=== PATIENT | male | born 1985 | race Caucasian/White ===

== ENCOUNTER 2024-09-16 11:33 | Emergency (ER) | payer OTHER ==
[2024-09-16 11:37] VITALS: TEMP 97.2; O2SAT 99
[2024-09-16] MEDS ORDERED: BABY ASPIRIN 81 MG CHEW ONE ×2 (11:45→11:48)
[2024-09-16] MEDS ORDERED: Sodium Chloride 0.9% 1000 ML 1,000 ML ONE (11:46)
[2024-09-16] MEDS ORDERED: Nitrostat 0.4 MG (ED) SL ONE (11:46)
[2024-09-16] MEDS: Sodium Chloride 0.9% 1000 ML 1,000 ML IV SCH (11:47)
[2024-09-16] MEDS: BABY ASPIRIN 81 MG CHEW PO ONE ×2 (11:49→11:50)
[2024-09-16] MEDS: Nitrostat 0.4 MG (ED) SL ONE (11:49)
[2024-09-16 11:58] LABS: Absolute Neutrophil Ct (ANC) 5.18 x10^3/uL (1.78-5.38); BASOPHIL % 0.7 % (0.2-1.2); Basophil (Absolute #) 0.05 x10^3/uL (0.01-0.08); Eosinophil % 3.1 % (0.8-7.0); Eosinophil (Absolute #) 0.24 x10^3/uL (0.04-0.54); Hematocrit 45.7 % (40.1-51.0); Hemoglobin 15.7 g/dL (13.7-17.5); IMMATURE GRAN # 0.03 x10^3u/L (0.001-0.031); IMMATURE GRAN % 0.4 % (0.001-0.429); Lymphocyte (Absolute #) 1.57 x10^3/uL (1.32-3.57); Lymphocytes % 20.5 % (21.8-53.1); Mean Cell Volume 85.4 fL (79.0-92.2); Mean Corpuscular Hemoglobin 29.3 pg (25.7-32.2); Mean Corpuscular Hgb Concent. 34.4 g/dL (32.3-36.5); Mean Platelet Volume 9.6 fL (9.4-12.4); Monocyte (Absolute #) 0.57 x10^3/uL (0.30-0.82); Monocytes % 7.5 % (5.3-12.2); Neutrophil % 67.8 % (34.0-67.9); Platelet Count 336 x10^3/uL (163-337); Red Blood Count 5.35 x10^6/uL (4.63-6.08); Red Cell Distribution Width 13.9 % (11.6-14.4); White Blood Count 7.6 x10^3/uL (4.23-9.07)
--- NOTE | 2024-09-16 12:16 | ERPHSYRPT ---
- History of Present Illness Time Seen by Provider: 09/16/24 12:13 Historian: patient Exam Limitations: no limitations Patient Subjective Stated Complaint: pt her for pain to left side of chest. started today at rest. states pain worse with deep breath, denies any cough or fever Triage Nursing Assessment: pt alert, walked in, resp easy, skin w/d/p, chest clear, no cough, moves all ext well, Physician History: Patient is 39-year-old male with significant past medical history of hypertension and gout has off-and-on chest pain for last couple weeks for which patient was seen in the primary care physician office to 3 days ago where he had some tingling and numbness in his left arm. Patient was informed there might be some anxiety related symptoms but advised to come to the emergency room if symptoms persist or or develop chest pain. Patient started having a substernal and left-sided chest pain in the morning around 930 10:00 in chest pain persisted so he came to the emergency room. In the emergency room he was having very mild chest pain but denies any other symptoms including diaphoresis nausea vomiting headache or shortness of breath. Patient is taking medicine for his blood pressure and cholesterol as well as for his gout he does not remember the names. Timing/Duration: today Quality: burning Location: substernal Chest Pain Radiation: no radiation Severity of Pain-Max: mild Severity of Pain-Current: mild Modifying Factors: Improves With: nothing Associated Symptoms: denies symptoms Nitro Today/Relief: no nitro taken today Aspirin Treatment Today: no aspirin today Allergies/Adverse Reactions: No Known Drug Allergies Allergy (Unverified 09/16/24 11:35) Home Medications: Unobtainable 09/16/24 [History] Hx Tetanus, Diphtheria Vaccination/Date Given: No Hx Influenza Vaccination/Date Given: No Hx Pneumococcal Vaccination/Date Given: No Immunizations Up to Date: Yes Travel Risk - International Travel Have you traveled outside of the country in past 3 weeks: No - Emerging Infectious Disease Are you exhibiting symptoms associated with any current EIDs: No - Review of Systems Constitutional: No Fever, No Chills Eyes: No Symptoms Ears, Nose, & Throat: No Symptoms Respiratory: No Cough, No Dyspnea Cardiac: No Chest Pain, No Edema, No Syncope Abdominal/Gastrointestinal: No Abdominal Pain, No Nausea, No Vomiting, No Diarrhea Genitourinary Symptoms: No Dysuria Musculoskeletal: No Back Pain, No Neck Pain Skin: No Rash Neurological: No Dizziness, No Focal Weakness, No Sensory Changes Psychological: No Symptoms Endocrine: No Symptoms All Other Systems: Reviewed and Negative - Past Medical History Pertinent Past Medical History: Yes Cardiac History: High Cholesterol, Hypertension Other Medical History: gout - Past Surgical History Past Surgical History: Yes Musculoskeletal: Orthopedic Surgery Other Surgical History: knee - Social History Smoking Status: Never smoker Exposure to second hand smoke: No Drug Use: none - Social Determinants of Health Will the patient participate in the screening: Declined to provide - Nursing Vital Signs Nursing Vital Signs: Initial Vital Signs Blood Pressure 151/98 09/16/24 11:35 Pain Scale Pain Intensity 3 - Physical Exam General Appearance: no apparent distress, alert Eye Exam: PERRL/EOMI, eyes nml inspection Ears, Nose, Throat Exam: normal ENT inspection, moist mucous membranes Neck Exam: normal inspection, non-tender, supple, full range of motion Respiratory Exam: normal breath sounds, lungs clear, No respiratory distress Cardiovascular Exam: regular rate/rhythm, normal heart sounds Gastrointestinal/Abdomen Exam: soft, No tenderness, No mass Back Exam: normal inspection, No CVA tenderness, No vertebral tenderness Extremity Exam: normal inspection, normal range of motion Neurologic Exam: alert, oriented x 3, cooperative, normal mood/affect, sensation nml, No motor deficits Skin Exam: normal color, warm, dry SpO2: 99 - Course Nursing assessment & vital signs reviewed: Yes EKG Interpreted by Me: Sinus Rhythm, Non-specific ST Changes - Radiology Exams Chest X-ray Interpretation: Interpreted by me, Reviewed by me, Negative, No Pneumonia Ordered Tests: Active Orders 24 hr Category Date Time Status Smooth Plater STAT Care 09/16/24 11:41 Active EKG-ER Only STAT Care 09/16/24 11:41 Active IV Insertion STAT Care 09/16/24 11:41 Active Oxygen-ED Only Nasal Cannula 2 lpm Care 09/16/24 11:41 Active CHEST 1 VIEW (PORTABLE) Stat Exams 09/16/24 11:41 Ordered CBC W DIFF Stat Lab 09/16/24 11:58 Completed CMP Stat Lab 09/16/24 11:58 Completed D-DIMER QUANTITATIVE Stat Lab 09/16/24 11:58 Completed NT PRO BNPII Stat Lab 09/16/24 11:58 Completed TROPONIN Q4H Lab 09/16/24 11:58 Completed TROPONIN Q4H Lab 09/16/24 15:45 Ordered TROPONIN Q4H Lab 09/16/24 19:45 Ordered Uric Acid Stat Lab 09/16/24 11:58 Completed Medication Summary Generic Name Dose Route Start Last Admin Trade Name Myranda PRN Reason Stop Dose Admin Sodium Chloride 1,000 mls @ 100 mls/hr 09/16/24 11:45 09/16/24 11:47 Sodium Chloride 0.9% 1000 Ml IV 10/16/24 11:44 100 mls/hr .Q10H HENRIETTA Administration Discontinued Medications Generic Name Dose Route Start Last Admin Trade Name Myranda PRN Reason Stop Dose Admin Aspirin 81 mg 09/16/24 11:41 09/16/24 11:49 Aspirin 81 Mg Tab.Chew PO 09/16/24 11:42 Not Given STAT ONE Aspirin Confirm 09/16/24 11:45 Aspirin 81 Mg Tab.Chew Administered 09/16/24 11:46 Dose 81 mg .ROUTE .STK-MED ONE Aspirin 324 mg 09/16/24 11:48 09/16/24 11:50 Aspirin 81 Mg Tab.Chew PO 09/16/24 11:49 324 mg STAT ONE Administration Aspirin Confirm 09/16/24 11:48 Aspirin 81 Mg Tab.Chew Administered 09/16/24 11:49 Dose 243 mg .ROUTE .STK-MED ONE Nitroglycerin 0.4 mg 09/16/24 11:41 09/16/24 11:49 Nitroglycerin 0.4 Mg (Ed) 0.4 Mg Tab.Subl SL 09/16/24 11:42 0.4 mg STAT ONE Administration Nitroglycerin Confirm 09/16/24 11:46 Nitroglycerin 0.4 Mg (Ed) 0.4 Mg Tab.Subl Administered 09/16/24 11:47 Dose 0.4 mg SL .STK-MED ONE Lab/Rad Data: Laboratory Result Diagrams 09/16/24 11:58 09/16/24 11:58 Laboratory Results 09/16/24 09/16/24 09/16/24 Range/Units 11:58 11:58 11:58 WBC (4.23-9.07) x10^3/uL RBC (4.63-6.08) x10^6/uL Hgb (13.7-17.5) g/dL Hct (40.1-51.0) % MCV (79.0-92.2) fL MCH (25.7-32.2) pg MCHC (32.3-36.5) g/dL RDW (11.6-14.4) % Plt Count (163-337) x10^3/uL MPV (9.4-12.4) fL Gran % (34.0-67.9) % Immature Gran % (Auto) (0.001-0.429) % Nucleat RBC Rel Count (0.00-0.2) % Eos # (Auto) (0.04-0.54) x10^3/uL Immature Gran # (Auto) (0.001-0.031) x10^3u/L Absolute Lymphs (auto) (1.32-3.57) x10^3/uL Absolute Monos (auto) (0.30-0.82) x10^3/uL Absolute Nucleated RBC (0.00-0.012) x10^3u/L Lymphocytes % (21.8-53.1) % Monocytes % (5.3-12.2) % Eosinophils % (0.8-7.0) % Basophils % (0.2-1.2) % Absolute Granulocytes (1.78-5.38) x10^3/uL Basophils # (0.01-0.08) x10^3/uL D-Dimer < 0.19 (0.0-0.50) mg/L Sodium 141 (135-145) mmol/L Potassium 3.6 (3.5-5.1) mmol/L Chloride 103 (98-107) mmol/L Carbon Dioxide 26 (22-30) mmol/L Anion Gap 15.1 H (5-15) MEQ/L BUN 12 (9-20) mg/dL Creatinine 0.94 (0.66-1.25) mg/dL Estimated GFR 107.1 ML/MIN Glucose 98 (74-106) mg/dL Uric Acid 5.2 (3.5-7.2) mg/dL Calcium 9.5 (8.4-10.2) mg/dL Total Bilirubin 0.70 (0.2-1.3) mg/dL AST 27 (17-59) U/L ALT 29 (0-50) U/L Alkaline Phosphatase 71 (38-126) U/L Troponin I < 0.012 (0.000-0.033) ng/mL NT-Pro-B Natriuret Pep < 20.0 (<300) pg/mL Serum Total Protein 7.0 (6.3-8.2) g/dL Albumin 4.6 (3.5-5.0) g/dL // Range/Units 11:58 WBC 7.6 (4.23-9.07) x10^3/uL RBC 5.35 (4.63-6.08) x10^6/uL Hgb 15.7 (13.7-17.5) g/dL Hct 45.7 (40.1-51.0) % MCV 85.4 (79.0-92.2) fL MCH 29.3 (25.7-32.2) pg MCHC 34.4 (32.3-36.5) g/dL RDW 13.9 (11.6-14.4) % Plt Count 336 (163-337) x10^3/uL MPV 9.6 (9.4-12.4) fL Gran % 67.8 (34.0-67.9) % Immature Gran % (Auto) 0.4 (0.001-0.429) % Nucleat RBC Rel Count 0.0 (0.00-0.2) % Eos # (Auto) 0.24 (0.04-0.54) x10^3/uL Immature Gran # (Auto) 0.03 (0.001-0.031) x10^3u/L Absolute Lymphs (auto) 1.57 (1.32-3.57) x10^3/uL Absolute Monos (auto) 0.57 (0.30-0.82) x10^3/uL Absolute Nucleated RBC 0.00 (0.00-0.012) x10^3u/L Lymphocytes % 20.5 L (21.8-53.1) % Monocytes % 7.5 (5.3-12.2) % Eosinophils % 3.1 (0.8-7.0) % Basophils % 0.7 (0.2-1.2) % Absolute Granulocytes 5.18 (1.78-5.38) x10^3/uL Basophils # 0.05 (0.01-0.08) x10^3/uL D-Dimer (0.0-0.50) mg/L Sodium (135-145) mmol/L Potassium (3.5-5.1) mmol/L Chloride (98-107) mmol/L Carbon Dioxide (22-30) mmol/L Anion Gap (5-15) MEQ/L BUN (9-20) mg/dL Creatinine (0.66-1.25) mg/dL Estimated GFR ML/MIN Glucose (74-106) mg/dL Uric Acid (3.5-7.2) mg/dL Calcium (8.4-10.2) mg/dL Total Bilirubin (0.2-1.3) mg/dL AST (17-59) U/L ALT (0-50) U/L Alkaline Phosphatase (38-126) U/L Troponin I (0.000-0.033) ng/mL NT-Pro-B Natriuret Pep (<300) pg/mL Serum Total Protein (6.3-8.2) g/dL Albumin (3.5-5.0) g/dL Medical Desision Making - Diagnostic Testing Diagnostic test were ordered, analyzed, and reviewed by me: Yes Radiological Interpretation: Interpreted by me, Reviewed by me - Risk of complications Low Risk: Low risk of morbidity from additional dx testing or treatment - Departure Departure Disposition: Home Clinical Impression: Chest pain in adult Condition: Stable Critical Care Time: No Referrals: MARIA WING MD [ACTIVE STAFF, [facility]] - Follow up/PCP as directed Instructions: Chest Pain (DC) Additional Instructions: Discharge/Care Plan EAMONWESLY was seen on 09/16/24 in the Emergency Room. The patient was counseled regarding Diagnosis,Lab results, Imaging studies, need for follow up and when to return to the Emergency Room. Prescriptions given: Discharge Note I have spoken with the patient and/or caregivers. I have explained the patient's condition, diagnosis and treatment plan based on the information available to me at this time. I have answered the patient's and/or caregiver's questions and addressed any concerns. The patient and/or caregivers have as good understanding of the patient's diagnosis, condition and treatment plan as can be expected at this point. The vital signs have been stable. The patient's condition is stable and appropriate for discharge from the emergency department. The patient will pursue further outpatient evaluation with the primary care physician or other designated or consulting physician as outlined in the discharge instructions. The patient and/or caregivers are agreeable to this plan of care and follow-up instructions have been explained in detail. The patient and/or caregivers have received these instruction. The patient/and or caregivers are aware that any significant change in condition or worsening of symptoms should prompt an immediate return to this or the closest emergency department or call 911. WESLY KNUTSON was seen on 09/16/24 n the Emergency Room. At that time you were treated for an emergent condition, during your visit Laboratory, Radiology and/or other procedures may have been ordered. It is very important that you follow-up with your Primary Care Physician ILIA ROBERTS within the next 2 4-48 hours to review your Emergency Room visit and the final results of testing that was ordered. Some test results such as Urine Cultures, Blood Cultures, and other cultures if ordered will not be finalized for 24-48 hours. If you do not have a Primary Care Provider please call the medical records department at [phone] ext [phone] to obtain a copy of your results or you may sign into our patient portal to obtain these results by visiting us @ [email or web address] and completing the following steps: 1. Click on the Patient Portal link 2. Click the Patient Self Enrollment Link to complete the enrollment form and entering your 3. Once the enrollment form is completed you will receive an email with a temporary ID and password at the email address you provided. 4. Next choose a user name and password. Your user name must be at least 4 characters long and your password must be at least 4 characters long. 5. Choose a security question from the list and provide your answer to the question. If you already have signed into the Health Portal you may access your Health Care Information 13/12 by the following steps: 1. Login to our website @ [email or web address] 2. Enter your original user name and password. FAQS The [facility] Health Portal is an online tool that contains your Lab Results, Radiology Reports, Visit History, Discharge Instructions and Health Summary Lab and Radiology Results will not be available for 72 hours on the portal. The Portal is a secure site, passwords are encryted and URLs are re-written so they cannot be copied and pasted. You and authorized family members are the only ones who can access your Portal. Also there is a timeout feature that protects your information if you leave the Portal page open. If you have technical difficulty please use the Contact Us link on the page this will allow you to submit any questions you have regarding the Portal or you may contact the Medical Record Department at [phone] ext [phone].
[2024-09-16 12:25] LABS: ALBUMIN 4.6 g/dL (3.5-5.0); ALKALINE PHOSPHATASE 71 U/L (38-126); ANION GAP 15.1 MEQ/L (5-15); BLOOD UREA NITROGEN 12 mg/dL (9-20); CHLORIDE 103 mmol/L (98-107); Calcium 9.5 mg/dL (8.4-10.2); Carbon Dioxide 26 mmol/L (22-30); Creatinine 1 0.94 mg/dL (0.66-1.25); EST GLOMERULAR FILTRATION RATE 107.1 ML/MIN; Glucose 98 mg/dL (74-106); NT PRO BNPII < 20.0 pg/mL (<300); Potassium 3.6 mmol/L (3.5-5.1); SGOT/AST 27 U/L (17-59); SGPT/ALT 29 U/L (0-50); SODIUM 141 mmol/L (135-145); Uric Acid 5.2 mg/dL (3.5-7.2)
[2024-09-16 12:40] VITALS: BP 149/71; PULSE 91; RESP 23
--- NOTE | 2024-09-16 20:41 | XRAY ---
Indication: Chest pain. Comparison: February 08, 2010 Portable apical lordotic chest remains inflated and clear. Heart not enlarged. Bony thorax intact. No new/acute findings.
== END 2024-09-16 12:48 | disposition home or self-care (01) ==
LOC: ED 11:33
DX: R07.9 Chest pain, unspecified (principal); I10 Essential (primary) hypertension; E78.5 Hyperlipidemia, unspecified
CPT/HCPCS: 36415; 71045; 80053; 83880; 84484; 84550; 85025; 85379; 93005; 93041; 96360; 99284; 99285; A9270-GY